=== PATIENT | female | born 1985 | race African-American/Black ===

== ENCOUNTER 2020-10-14 14:23 | Emergency (ER) | payer OTHER ==
[~2020-10-14] VITALS: Ht 154.9 cm; Wt 61.4 kg
[2020-10-14 15:07] VITALS: BP 116/74; Ht 154.9 cm; Wt 61.4 kg
[2020-10-14 16:45] LABS: BILIRUBIN NEGATIVE (NEGATIVE); HCG URINE NEGATIVE (NEGATIVE); KETONE NEGATIVE (NEGATIVE); NITRITE POSITIVE (NEGATIVE); UROBILINOGEN NORMAL mg/dL (< 2)
[2020-10-14 16:48] LABS: BACTERIA MANY HPF (NONE SEEN); SQUAMOUS EPITHELIAL 0-5 HPF (0-4)
[2020-10-14] MEDS ORDERED: MACROBID100 MG PO (16:52)
== END 2020-10-14 17:06 | disposition home or self-care (01) ==
LOC: D.ER 14:23
PROVIDERS: Emergency Medicine
DX: N93.8 Other specified abnormal uterine and vaginal bleeding (principal); N39.0 Urinary tract infection, site not specified